=== PATIENT | male | born 1985 | race Caucasian/White ===

== ENCOUNTER 2016-12-19 20:13 | Emergency (ER) | payer SELFPAY ==
[~2016-12-19] VITALS: Ht 177.8 cm; Wt 77.7 kg
[2016-12-19 20:59] LABS: HEMATOCRIT 34.4 % (38.0-50.0); MCH 20.8 PG (29.0-34.0); MCHC 31.7 G/DL (30.0-36.0); MCV 65.6 FL (86-99); MEAN PLAT.VOLUME 10.4 uM^3 (9.0-12.4); PLATELET COUNT 185 K/uL (156-360); RBC DIS.WIDTH-CV 15.1 % (11.8-14.6); RBC DIS.WIDTH-SD 34.8 % (39-53); RED BLOOD COUNT 5.24 M/uL (4.00-5.50); WHITE BLOOD COUNT 9.7 K/uL (4.1-10.2)
[2016-12-19 21:02] LABS: CHLORIDE 105 mEq/L (99-109); POTASSIUM 3.4 mEq/L (3.7-5.4); SODIUM 140 mEq/L (136-147)
[2016-12-19 21:04] LABS: GLUCOSE 109 mg/dL (70-99)
[2016-12-19 21:05] LABS: ANION GAP 12 MEQ/L (2-14)
[2016-12-19 21:07] LABS: SERUM ETHYL ALCOHOL < 10 mg/dL
[2016-12-19 21:08] LABS: GFR ESTIMATE (CALCULATED) > 59 mL/min/
[2016-12-19 21:09] LABS: UREA NITROGEN (BUN) 12 mg/dL (9-23)
[2016-12-20] MEDS ORDERED: KEFLEX500 MG PO (02:35)
[2016-12-20 02:46] VITALS: BP 121/84
== END 2016-12-20 02:46 | disposition left against medical advice (07) ==
LOC: EME → EDBD 20:13 → EME 20:13
PROVIDERS: Emergency Medicine
PROC: 0CQ1XZZ Repair Lower Lip, External Approach (ICD-10-PCS; principal; 2016-12-19)
DX: S02.413A LeFort III fracture, initial encounter for closed fracture (principal); S01.511A Laceration without foreign body of lip, initial encounter; Y00.XXXA Assault by blunt object, initial encounter; Y07.9 Unspecified perpetrator of maltreatment and neglect; F17.200 Nicotine dependence, unspecified, uncomplicated
CPT/HCPCS: 70450; 70486; 72125; 80048; 85027; 99281; 99285; G0480; J1885; J2270; J2405